=== PATIENT | female | born 1980 | race Caucasian/White ===

== ENCOUNTER 2017-03-03 18:24 | Inpatient (IN) | payer MEDICAID, OTHER ==
[~2017-03-03] VITALS: Ht 162.6 cm; Wt 117.7 kg
[~2017-03-03 18:24] MED LIST: ACYC200C PO; GLIP5 PO; HUM10VIA SQ; HYDR-3971 PO; HYDR25TA PO; IBUP-2071 PO; LORA0.5T2 PO; METF500T4 PO; PROZ10 PO
[2017-03-03 18:42] LABS: GLUCOSE,POINT OF CARE 252 MG/DL (70-110)
[2017-03-03 18:45] LABS: BASOPHILS % (AUTO) 0.3 % (0.0-2.0); EOSINOPHILS % (AUTO) 0.7 % (1.0-6.0); HEMATOCRIT 36.4 % (36-46); HEMOGLOBIN 12.4 g/dL (12.0-16.0); LYMPHOCYTES # (AUTO) 2.3 K/uL (1.0-4.8); LYMPHOCYTES % (AUTO) 29.2 % (22.0-44.0); MEAN CORPUSCULAR HEMOGLOBIN 27.1 pg (26.0-34.0); MEAN CORPUSCULAR HGB CONC 34.1 G/dL (31.0-37.0); MEAN CORPUSCULAR VOLUME 79 fL (80-100); MONOCYTES # (AUTO) 0.4 K/uL (0.1-1.0); MONOCYTES % (AUTO) 5.4 % (2.0-9.0); NEUTROPHILS % (AUTO) 64.4 % (40.0-70.0); PLATELET COUNT (AUTO) 282 K/uL (150-450); RED BLOOD CELL COUNT(AUTO) 4.58 MIL/uL (4.00-5.20); RED CELL DISTRIBUTION WIDTH 15.7 % (11.5-14.5); WHITE BLOOD COUNT (AUTO) 7.8 K/uL (4.5-11.0)
[2017-03-03 19:02] LABS: ANION GAP 9 mmol/L (8-16); CARBON DIOXIDE 27 mmol/L (22-29); CHLORIDE 101 mmol/L (98-107); CREATININE 0.96 mg/dL (0.60-1.30); GLOMERULAR FILTR. RATE CALC > 60 mL/min (>60); POTASSIUM 3.7 mmol/L (3.5-5.1); SODIUM SERUM 137 mmol/L (136-145); UREA NITROGEN, BLOOD 18 mg/dL (7-18)
[2017-03-03 19:09] LABS: ALANINE AMINOTRANSFERASE 11 U/L (12-78); ALBUMIN 3.3 g/dL (3.4-5.0); ASPARTATE AMINOTRANSFERASE 12 U/L (15-37); BILIRUBIN,TOTAL 0.2 mg/dL (0.1-1.0); TOTAL PROTEIN, SERUM 7.6 g/dL (6.4-8.2)
[2017-03-03 20:43] LABS: GLUCOSE,POINT OF CARE 238 MG/DL (70-110)
[2017-03-03] MEDS ORDERED: ZOLPIDEM TARTRATE 10 MG TABLET PO PRN (21:30)
[2017-03-03] MEDS ORDERED: HALOPERIDOL 5 MG TABLET PO PRN (21:30)
[2017-03-03] MEDS ORDERED: LORazepam 2 MG TABLET PO PRN (21:30)
[2017-03-03 21:52] LABS: APPEARANCE,URINE CLEAR (CLEAR); GLUCOSE, URINE (UA) >=1000 mg/dL (NEGATIVE); KETONES,URINE NEGATIVE (NEGATIVE); LEUKOCYTE ESTERASE ,URINE NEGATIVE (NEGATIVE); OCCULT BLOOD,URINE NEGATIVE (NEGATIVE); PH,URINE 6.5 (5.0-8.0); PROTEIN,URINE NEGATIVE (NEGATIVE)
[2017-03-03 21:54] LABS: ADD UA MICROSCOPIC YES
[2017-03-03 22:01] LABS: THYROID STIMULATING HORMONE 1.03 uIU/mL (0.36-3.74)
[2017-03-03 22:05] LABS: SQUAMOUS EPITHELIAL CELL,UR Moderate /LPF (None Seen)
[2017-03-03 22:06] LABS: RBC,URINE None Seen /HPF (0-2); WBC,URINE 0-2 /HPF (0-5)
[2017-03-03 22:13] VITALS: BP 119/80
[2017-03-03] MEDS ORDERED: DEXTROSE 50%-WATER 25 GM/50 ML SYRINGE IVP PRN (22:45)
[2017-03-04 06:04] LABS: GLUCOSE COMMENT 1 Received Meds; GLUCOSE,POINT OF CARE 189 MG/DL (70-110)
[2017-03-04] MEDS: GlipiZIDE 5 MG TABLET PO SCH (06:53)
[2017-03-04] MEDS: MetFORMIN HCL 500 MG TABLET PO SCH ×2 (06:54→17:28)
[2017-03-04] MEDS: INSULIN ASPART 100 UNITS/ML SQ PRN ×4 (07:03→20:46)
[2017-03-04 08:30] VITALS: BP 132/64
[2017-03-04] MEDS: FLUoxetine HCL 20 MG CAPSULE PO SCH (11:18)
[2017-03-04 11:22] LABS: GLUCOSE,POINT OF CARE 190 MG/DL (70-110)
[2017-03-04] MEDS ORDERED: IBUPROFEN 400 MG TABLET PO PRN (15:00)
[2017-03-04] MEDS ORDERED: ACETAMINOPHEN 325 MG TABLET PO PRN (15:00)
[2017-03-04 17:32] LABS: GLUCOSE,POINT OF CARE 243 MG/DL (70-110)
[2017-03-04 19:58] VITALS: BP 124/79
[2017-03-04 20:48] LABS: GLUCOSE,POINT OF CARE 259 MG/DL (70-110)
[2017-03-05 06:07] LABS: GLUCOSE COMMENT 1 Received Meds; GLUCOSE,POINT OF CARE 242 MG/DL (70-110)
[2017-03-05 06:31] VITALS: BP 123/75
[2017-03-05] MEDS: MetFORMIN HCL 500 MG TABLET PO SCH ×2 (06:50→17:55)
[2017-03-05] MEDS: GlipiZIDE 5 MG TABLET PO SCH (06:50)
[2017-03-05] MEDS: INSULIN ASPART 100 UNITS/ML SQ PRN ×4 (07:03→21:11)
[2017-03-05] MEDS: FLUoxetine HCL 20 MG CAPSULE PO SCH (08:03)
[2017-03-05 08:05] VITALS: BP 131/80
[2017-03-05 11:12] LABS: GLUCOSE,POINT OF CARE 148 MG/DL (70-110)
[2017-03-05] MEDS ORDERED: LOPERAMIDE HCL 2 MG CAPSULE PO PRN (13:45)
[2017-03-05 16:33] LABS: GLUCOSE,POINT OF CARE 241 MG/DL (70-110)
[2017-03-05 19:01] VITALS: BP 124/82
[2017-03-05 20:38] LABS: GLUCOSE,POINT OF CARE 272 MG/DL (70-110)
[2017-03-06 05:48] LABS: GLUCOSE COMMENT 1 Received Meds; GLUCOSE,POINT OF CARE 261 MG/DL (70-110)
[2017-03-06] MEDS: GlipiZIDE 5 MG TABLET PO SCH (06:47)
[2017-03-06] MEDS: MetFORMIN HCL 500 MG TABLET PO SCH (07:00)
[2017-03-06] MEDS: INSULIN ASPART 100 UNITS/ML SQ PRN (07:01)
[2017-03-06] MEDS: FLUoxetine HCL 20 MG CAPSULE PO SCH (08:26)
[2017-03-06 11:12] LABS: GLUCOSE,POINT OF CARE 119 MG/DL (70-110)
[2017-03-06 12:50] VITALS: BP 128/82
== END 2017-03-06 12:45 | disposition home or self-care (01) | DRG 751 ==
LOC: EMS 18:26 → 3EI 21:30
DX: F33.2 Major depressive disorder, recurrent severe without psychotic features (principal); R45.851 Suicidal ideations; E11.9 Type 2 diabetes mellitus without complications; E78.5 Hyperlipidemia, unspecified; I10 Essential (primary) hypertension; Z79.4 Long term (current) use of insulin; Z79.899 Other long term (current) drug therapy; Z91.14 Patient's other noncompliance with medication regimen; F41.9 Anxiety disorder, unspecified; Z88.7 Allergy status to serum and vaccine; Z98.51 Tubal ligation status; Z90.49 Acquired absence of other specified parts of digestive tract
CPT/HCPCS: 82962; 84443; 99285; G0480